=== PATIENT | female | born 1985 | race American Indian/Alaskan Native ===

== ENCOUNTER 2017-04-01 21:07 | Emergency (ER) | payer SELFPAY ==
[2017-04-01] MEDS ORDERED: ZOFRAN IV ONE (21:30)
[2017-04-01] MEDS ORDERED: TYLENOL PO ONE (21:32)
[2017-04-01 21:56] LABS: Basophils % (Auto) 0.2 % (0.0-1.8); Eosinophils % (Auto) 1.2 % (0.0-4.3); Hematocrit 37.4 % (30.3-42.9); Hemoglobin 12.6 gm/dl (10.1-14.3); Mean Corpuscular HGB Conc 34 % (30-34); Mean Corpuscular Hemoglobin 30 pg (28-32); Mean Corpuscular Volume 89 fl (79-97); Platelet Count 173 K/mm3 (140-440); Red Blood Count 4.21 M/mm3 (3.65-5.03); White Blood Count 8.8 K/mm3 (4.5-11.0)
[2017-04-01 22:08] LABS: Anion Gap 19 mmol/L; BUN/Creatinine Ratio 11.11; Blood Urea Nitrogen 10 mg/dL (7-17); Calcium 9.2 mg/dL (8.4-10.2); Carbon Dioxide 21 mmol/L (22-30); Chloride 98.5 mmol/L (98-107); Glucose 96 mg/dL (65-100); Sodium 134 mmol/L (137-145)
[2017-04-01 22:09] LABS: Bacteria,Urine 1+ /HPF (Negative); Bilirubin,Urine NEG (Negative); Blood,Urine SM (Negative); Ketones,Urine NEG (Negative); Leukocyte Esterase,Urine SM (Negative); Mucus,Urine FEW /HPF; Nitrite,Urine NEG (Negative); Protein,Urine <15 mg/dL mg/dL (Negative); Urobilinogen,Urine < 2.0 mg/dL (<2.0)
[2017-04-02] MEDS ORDERED: NACL 0.9% 1000 ML 1,000 ML ONE (02:22)
[2017-04-02] MEDS ORDERED: MORPHINE IV ONE (03:25)
[2017-04-02] MEDS ORDERED: NACL 0.9% 1000 ML 1,000 ML IV ONE (03:25)
[2017-04-02] MEDS ORDERED: ROCEPHIN/NS 1 GM/50 ML 1 GM/50 ML BAG IV ONE (03:25)
[2017-04-02] MEDS ORDERED: TORADOL IV ONE (03:25)
[2017-04-02] MEDS ORDERED: ZOFRAN IV ONE (03:25)
[2017-04-02] MEDS ORDERED: DILAUDID IV ONE (05:26)
--- NOTE | 2017-04-02 05:27 | Emergency Department Report ---
ED Abdominal Pain HPI - General Chief Complaint: Back Pain/Injury Stated Complaint: BACK PAIN, DIZZY, AND FATIGUE Time Seen by Provider: 04/02/17 02:54 Source: patient Mode of arrival: Ambulatory Limitations: No Limitations - History of Present Illness Initial Comments: 31-year-old female with no significant past medical history presents to the hospital complaining of right flank pain and fever that started last night. Pain is sharp in the lower back, intermittently, worse with movement. Patient complaining of nausea and vomiting, fever and chills. Patient denies dysuria but states she has suprapubic pressure with urination. Positive dizziness with standing today and generalized malaise and fatigue. No previous abdominal surgeries reported. Severity scale (0 -10): 8 - Related Data Previous Rx's Medication Instructions Recorded Last Taken Type Ibuprofen [Motrin] 800 mg PO Q8HR PRN #30 tablet 04/02/17 Unknown Rx Nitrofurantoin [place]/M-Cryst 100 mg PO Q12HR #14 capsule 04/02/17 Unknown Rx [Macrobid CAP] Ondansetron [Zofran Odt] 4 mg PO Q8HR #20 tab.rapdis 04/02/17 Unknown Rx oxyCODONE /ACETAMINOPHEN [Percocet 1 tab PO Q6HR PRN #20 tablet 04/02/17 Unknown Rx 5/325] Allergies Allergy/AdvReac Type Severity Reaction Status Date / Time No Known Allergies Allergy Unverified 04/01/17 21:29 ED Review of Systems ROS: Stated complaint: BACK PAIN, DIZZY, AND FATIGUE Other details as noted in HPI Comment: All other systems reviewed and negative Other: Constitutional: Positive fever Eyes: No eye pain visual changes ENT: No ear pain or throat pain Neck: Denies pain Respiratory: Denies cough wheezing shortness of breath Cardiovascular: Denies chest pain, palpitations, syncope GI: As per HPI : Denies dysuria Musculoskeletal: Lower back pain right side Skin: Denies rash, lesions, erythema Neurologic: Denies headache, numbness, weakness Psychiatric: Denies suicidal ideation, hallucinations ED Past Medical Hx - Past Medical History Previous Medical History?: No - Surgical History Past Surgical History?: No - Social History Smoking Status: Current Every Day Smoker Substance Use Type: None - Medications Home Medications: Home Medications Medication Instructions Recorded Confirmed Last Taken Type Ibuprofen [Motrin] 800 mg PO Q8HR PRN #30 tablet 04/02/17 Unknown Rx Nitrofurantoin [place]/M-Cryst 100 mg PO Q12HR #14 capsule 04/02/17 Unknown Rx [Macrobid CAP] Ondansetron [Zofran Odt] 4 mg PO Q8HR #20 tab.rapdis 04/02/17 Unknown Rx oxyCODONE /ACETAMINOPHEN [Percocet 1 tab PO Q6HR PRN #20 tablet 04/02/17 Unknown Rx 5/325] ED Physical Exam - General Limitations: No Limitations - Other Other exam information: General: No limitations, patient is alert in no acute distress Head exam: Atraumatic, normocephalic Eyes exam: Normal appearance, pupils equal reactive to light, extraocular movements intact ENT: Moist mucous membrane, normal oropharynx Neck exam: Normal inspection, full range of motion, no meningismus nontender Respiratory exam: Clear to auscultation bilateral, no wheezes, rales, crackles Cardiovascular: Normal rate and rhythm, normal heart sounds Abdomen: Soft, nondistended, suprapubic tenderness, with normal bowel sounds, no rebound, or guarding Extremity: Full range of motion normal inspection no deformity Back: Normal Inspection, full range of motion, no tenderness. No CVA tenderness Neurologic: Alert, oriented x3, cranial nerves intact, no motor or sensory deficit Psychiatric: normal affect, normal mood Skin: Warm, dry, intact ED Course Vital Signs 04/01/17 04/02/17 04/02/17 21:19 02:12 02:20 Temperature 101.7 F H 98.1 F Pulse Rate 110 H 80 Respiratory 16 18 Rate Blood Pressure 131/89 91/50 Blood Pressure 131/89 91/50 [Left] O2 Sat by Pulse 99 100 Oximetry 04/02/17 04/02/17 04/02/17 02:22 02:31 02:45 Temperature Pulse Rate Respiratory Rate Blood Pressure 122/72 111/74 114/66 Blood Pressure [Left] O2 Sat by Pulse Oximetry 04/02/17 04/02/17 04/02/17 02:56 03:00 03:10 Temperature Pulse Rate Respiratory Rate Blood Pressure 126/73 123/69 123/69 Blood Pressure [Left] O2 Sat by Pulse 100 98 99 Oximetry 04/02/17 04/02/17 03:20 03:57 Temperature Pulse Rate Respiratory Rate Blood Pressure 114/66 114/66 Blood Pressure [Left] O2 Sat by Pulse 99 Oximetry - Reevaluation(s) Reevaluation #1: 04/02/17 05:24 Tachycardia improved with IV fluids and fever reduction. Patient treated Rocephin for UTI. 04/02/17 05:26 Pain improved after morphine, Zofran, Toradol however, patient has persistent back pain there for additional medicine ordered. Dilaudid 0.5 mg ordered. ED Medical Decision Making - Lab Data Result diagrams: 04/01/17 21:42 04/01/17 21:42 Lab Results 04/01/17 04/01/17 04/01/17 Range/Units 21:42 21:42 21:45 WBC 8.8 (4.5-11.0) K/mm3 RBC 4.21 (3.65-5.03) M/mm3 Hgb 12.6 (10.1-14.3) gm/dl Hct 37.4 (30.3-42.9) % MCV 89 (79-97) fl MCH 30 (28-32) pg MCHC 34 (30-34) % RDW 15.0 (13.2-15.2) % Plt Count 173 (140-440) K/mm3 Lymph % (Auto) 18.1 (13.4-35.0) % [place] % (Auto) 10.0 H (0.0-7.3) % Eos % (Auto) 1.2 (0.0-4.3) % Baso % (Auto) 0.2 (0.0-1.8) % Lymph # 1.6 (1.2-5.4) K/mm3 M[place]ough # 0.9 H (0.0-0.8) K/mm3 Eos # 0.1 (0.0-0.4) K/mm3 Baso # 0.0 (0.0-0.1) K/mm3 Seg Neutrophils % 70.5 H (40.0-70.0) % Seg Neutrophils # 6.2 (1.8-7.7) K/mm3 Sodium 134 L (137-145) mmol/L Potassium 4.0 (3.6-5.0) mmol/L Chloride 98.5 (98-107) mmol/L Carbon Dioxide 21 L (22-30) mmol/L Anion Gap 19 mmol/L BUN 10 (7-17) mg/dL Creatinine 0.9 (0.7-1.2) mg/dL Estimated GFR > 60 ml/min BUN/Creatinine Ratio 11.11 % Glucose 96 (65-100) mg/dL Calcium 9.2 (8.4-10.2) mg/dL Urine Color Yellow (Yellow) Urine Turbidity Clear (Clear) Urine pH 6.0 (5.0-7.0) Ur Specific [place] 1.015 (1.003-1.030) Urine Protein <15 mg/dl (Negative) mg/dL Urine Glucose (UA) Neg (Negative) mg/dL Urine Ketones Neg (Negative) mg/dL Urine Blood Sm (Negative) Urine Nitrite Neg (Negative) Ur Reducing Substances Not Reportable Urine Bilirubin Neg (Negative) Urine Ictotest Not Reportable Urine Urobilinogen < 2.0 (<2.0) mg/dL Ur Leukocyte Esterase Sm (Negative) Urine WBC (Auto) 29.0 H (0.0-6.0) /HPF Urine RBC (Auto) 3.0 (0.0-6.0) /HPF U Epithel Cells (Auto) 1.0 (0-13.0) /HPF Urine Bacteria (Auto) 1+ (Negative) /HPF Urine Mucus Few /HPF Urine HCG, Qual Negative (Negative) blood culture urine culture pending - Medical Decision Making Patient suprapubic abdominal pain and pressure with urination and positive increased urine WBC count. She will be treated for UTI. Vital signs improved and symptoms improved prior to discharge - Differential Diagnosis UTI, pyelonephritis, renal colic, appendicitis Critical Care Time: No Critical care attestation.: If time is entered above; I have spent that time in minutes in the direct care of this critically ill patient, excluding procedure time. ED Disposition Clinical Impression: UTI (urinary tract infection) Disposition: DISCHARGED TO HOME OR SELFCARE Is pt being admited?: No Does the pt Need Aspirin: No Condition: Stable Instructions: Urinary Tract Infection in Women (ED) Additional Instructions: Take the medication as prescribed. Return if symptoms worsen. Follow-up with the doctor or clinic Prescriptions: Ibuprofen [Motrin] 800 mg PO Q8HR PRN #30 tablet PRN Reason: Pain Nitrofurantoin [place]/M-Cryst [Macrobid CAP] 100 mg PO Q12HR #14 capsule Ondansetron [Zofran Odt] 4 mg PO Q8HR #20 tab.rapdis oxyCODONE /ACETAMINOPHEN [Percocet 5/325] 1 tab PO Q6HR PRN #20 tablet PRN Reason: Pain Referrals: PRIMARY CARE, [Primary Care Provider] - 3-5 Days [facility] [Provider Group] - 3-5 Days AMELIA MCKEON MD [Staff Physician] - 3-5 Days Forms: Work/School Release Form(ED) Time of Disposition: 05:50
[2017-04-02 05:43] VITALS: BP 118/62
== END 2017-04-02 06:01 | disposition home or self-care (01) ==
LOC: ED 21:07
DX: N39.0 Urinary tract infection, site not specified (principal); F17.200 Nicotine dependence, unspecified, uncomplicated
CPT/HCPCS: 36415; 80048; 81001; 81025; 85025; 87040; 87076; 87086; 87186; 96365; 96375; 96376; 99284; J0696; J1170; J1885; J2270; J2405; J7030

== ENCOUNTER 2019-12-23 08:57 | Emergency (ER) | payer MEDICAID ==
[2019-12-23 11:07] LABS: Bilirubin,Urine NEG (Negative); Blood,Urine SM (Negative); Color,Urine Yellow (Yellow); Mucus,Urine FEW /HPF; Protein,Urine <15 mg/dL mg/dL (Negative); Urobilinogen,Urine < 2.0 mg/dL (<2.0)
[2019-12-23 11:09] LABS: HCG Qualitative,Urine Negative (Negative)
--- NOTE | 2019-12-23 11:11 | Emergency Department Report ---
ED Abdominal Pain HPI - General Chief Complaint: Abdominal Pain Stated Complaint: STOMACH SHARP PAIN Time Seen by Provider: 12/23/19 10:25 Source: patient Mode of arrival: Ambulatory Limitations: No Limitations - History of Present Illness Initial Comments: This is a 34-year-old female states she developed abdominal pain around 5 AM Wednesday morning. The pain is around her umbilicus. The pain is associated with nausea no vomiting and she's had 2 episodes of bowel movements since the pain started. . She denies fever and chills and the last day of her menstrual period was yesterday. Also denies any urinary symptoms. -: days(s) (1) Location: periumbilical Radiation: none Severity: severe Quality: sharp Consistency: constant Improves With: nothing Worsens With: movement Associated Symptoms: nausea Treatments Prior to Arrival: other (tylenol) - Related Data LMP (females 10-50): this week (LMP ended on 12/22/2019) Previous Rx's Medication Instructions Recorded Last Taken Type Ibuprofen [Motrin] 800 mg PO Q8HR PRN #30 tablet 04/02/17 Unknown Rx Nitrofurantoin [place]/M-Cryst 100 mg PO Q12HR #14 capsule 04/02/17 Unknown Rx [Macrobid CAP] Ondansetron [Zofran Odt] 4 mg PO Q8HR #20 tab.rapdis 04/02/17 Unknown Rx oxyCODONE /ACETAMINOPHEN [Percocet 1 tab PO Q6HR PRN #20 tablet 04/02/17 Unknown Rx 5/325] Ibuprofen [Motrin] 800 mg PO Q8HR PRN 7 Days #21 12/23/19 Unknown Rx tablet Allergies Allergy/AdvReac Type Severity Reaction Status Date / Time No Known Allergies Allergy Unverified 04/01/17 21:29 ED Review of Systems ROS: Stated complaint: STOMACH SHARP PAIN Other details as noted in HPI Comment: All other systems reviewed and negative Constitutional: denies: chills, fever ENT: denies: ear pain, dental pain Respiratory: denies: cough, shortness of breath, SOB with exertion Cardiovascular: denies: chest pain, palpitations, dyspnea on exertion Gastrointestinal: abdominal pain, nausea. denies: diarrhea, constipation Genitourinary: denies: urgency, dysuria, frequency, hematuria Musculoskeletal: denies: back pain Skin: denies: rash ED Past Medical Hx - Past Medical History Previous Medical History?: No Hx Hypertension: No Hx GERD: No Hx Seizures: No - Surgical History Past Surgical History?: No - Social History Smoking Status: Current Every Day Smoker Substance Use Type: Alcohol - Medications Home Medications: Home Medications Medication Instructions Recorded Confirmed Last Taken Type Ibuprofen [Motrin] 800 mg PO Q8HR PRN #30 tablet 04/02/17 Unknown Rx Nitrofurantoin [place]/M-Cryst 100 mg PO Q12HR #14 capsule 04/02/17 Unknown Rx [Macrobid CAP] Ondansetron [Zofran Odt] 4 mg PO Q8HR #20 tab.rapdis 04/02/17 Unknown Rx oxyCODONE /ACETAMINOPHEN [Percocet 1 tab PO Q6HR PRN #20 tablet 04/02/17 Unknown Rx 5/325] Ibuprofen [Motrin] 800 mg PO Q8HR PRN 7 Days #21 12/23/19 Unknown Rx tablet ED Physical Exam - General Limitations: No Limitations General appearance: alert, other (appears uncomfortable) - Head Head exam: Present: atraumatic - Eye Eye exam: Present: normal appearance. Absent: conjunctival injection - ENT ENT exam: Present: normal exam - Neck Neck exam: Present: normal inspection - Respiratory Respiratory exam: Present: normal lung sounds bilaterally. Absent: respiratory distress, wheezes, rales, rhonchi, stridor - Cardiovascular Cardiovascular Exam: Present: regular rate, normal heart sounds - GI/Abdominal GI/Abdominal exam: Present: soft, tenderness (around the umbilicus and epigastric region ), normal bowel sounds. Absent: distended, guarding, organomegaly, mass - Extremities Exam Extremities exam: Present: normal inspection, normal capillary refill - Back Exam Back exam: Present: normal inspection, full ROM. Absent: CVA tenderness (R), CVA tenderness (L) - Neurological Exam Neurological exam: Present: alert, oriented X3 - Psychiatric Psychiatric exam: Present: normal affect - Skin Skin exam: Present: warm, dry, intact, normal color ED Course Vital Signs 12/23/19 12/23/19 09:00 09:14 Temperature 97.5 F L 98.3 F Pulse Rate 97 H Respiratory 18 Rate Blood Pressure 137/82 O2 Sat by Pulse 100 Oximetry - Reevaluation(s) Reevaluation #1: 12/23/19 14:01 In no distress still having pain . Toradol 30 mg iv given. All findings discussed with mala. ED Medical Decision Making - Lab Data Result diagrams: 12/23/19 11:06 12/23/19 11:06 - Radiology Data Radiology results: report reviewed CT of abdomen Pelvis: The appendix is normal. Bilateral ovarian cysts are identified. A 3 cm right ovarian cyst and a 4.5 cm left ovarian cyst are demonstrated There are no acute inflammatory changes seen in the pelvis. Minimal fluid is seen in the cul-de-sac. Osseous structures are normal. IMPRESSION: 1. Bilateral ovarian cysts, larger on the left. - Medical Decision Making 34-year-old female with abdominal pain her labs and urinalysis were unremarkable.CT of her abdomen and pelvis revealed bilateral ovarian cyst the one on the left ovary is larger. All findings and results discussed with the patient and she is instructed to follow-up with her primary care doctor and or [facility] and referrals given.. Patient given RX for ibuprofen 800 for pain. Critical Care Time: No Critical care attestation.: If time is entered above; I have spent that time in minutes in the direct care of this critically ill patient, excluding procedure time. ED Disposition Clinical Impression: Abdominal pain Qualifiers: Abdominal location: periumbilical Qualified Code(s): R10.33 - Periumbilical pain Ovarian cyst Qualifiers: Laterality: bilateral Qualified Code(s): N83.201 - Unspecified ovarian cyst, right side; N83.202 - Unspecified ovarian cyst, left side Disposition: TO HOME OR SELFCARE Is pt being admited?: No Does the pt Need Aspirin: No Condition: Stable Instructions: Abdominal Pain (ED), Ovarian Cyst (ED) Additional Instructions: Follow up with your PCP or OBGYN, OR [facility] [phone] Call to make a appointment. The cat scan shows that you have bilateral ovarian cyst the one on the left is larger. There are no acute inflammatory changes your appendix appears to be normal. Take Motrin as prescribed for pain Prescriptions: Ibuprofen [Motrin] 800 mg PO Q8HR PRN 7 Days #21 tablet PRN Reason: Pain , Severe (7-10) Referrals: ROSALIE LUX MD [Primary Care Provider] - 3-5 Days LOUANN MIRZA MD [Staff Physician] - 3-5 Days Time of Disposition: 14:02
[2019-12-23] MEDS ORDERED: MORPHINE 2 MG/1 ML INJ IV ONE (11:26)
[2019-12-23] MEDS ORDERED: ONDANSETRON 4 MG/2 ML INJ IV ONE (11:26)
[2019-12-23] MEDS ORDERED: SODIUM CHLORIDE 0.9% 1000 ML 1,000 ML IV ONE (11:36)
[2019-12-23] MEDS ORDERED: SODIUM CHLORIDE 0.9% 1000 ML 1,000 ML ONE (11:38)
[2019-12-23 11:55] LABS: Hematocrit 39.4 % (30.3-42.9); Hemoglobin 13.5 gm/dl (10.1-14.3); Mean Corpuscular HGB Conc 34 % (30-34); Mean Corpuscular Volume 92 fl (79-97); Platelet Count 215 K/mm3 (140-440); Red Blood Count 4.28 M/mm3 (3.65-5.03); Red Cell Distribution Width 13.6 % (13.2-15.2)
[2019-12-23 12:17] LABS: Alanine Aminotransferase 17 units/L (7-56); Albumin 4.2 g/dL (3.9-5); BUN/Creatinine Ratio 15; Blood Urea Nitrogen 9 mg/dL (7-17); Calcium 9.5 mg/dL (8.4-10.2); Hemolysis Index 11
--- NOTE | 2019-12-23 13:36 | Cat Scan Report ---
CT abdomen pelvis w con INDICATION / CLINICAL INFORMATION: abdominal pain. TECHNIQUE: All CT scans at this location are performed using CT dose reduction for ALARA by means of automated e xposure control. COMPARISON: None available. FINDINGS: Limited lower thoracic images are negative. ABDOMEN: The gallbladder, liver, spleen, pancreas and kidneys are normal. No adrenal masses or retroperitoneal adenopathy. No small bowel dilatation. Pelvis: The appendix is normal. Bilateral ovarian cysts are identified. A 3 cm right ovarian cyst and a 4.5 cm left ovarian cyst are demonstrated There are no acute inflammatory changes seen in the pelvis. Minimal fluid is seen in the cul-de-sac. Osseous structures are normal. IMPRESSION: 1. Bilateral ovarian cysts, larger on the left. Signer Name: Joey Main MD Signed: 12/23/2019 1:32 PM Workstation Name: [id number]
[2019-12-23] MEDS ORDERED: KETOROLAC 30 MG/1 ML INJ IV ONE (13:58)
[2019-12-23 15:05] VITALS: BP 128/80
== END 2019-12-23 15:04 | disposition home or self-care (01) ==
LOC: ED 08:57
DX: R10.9 Unspecified abdominal pain (principal); N83.201 Unspecified ovarian cyst, right side; F17.200 Nicotine dependence, unspecified, uncomplicated; Z79.1 Long term (current) use of non-steroidal anti-inflammatories (NSAID); Z79.899 Other long term (current) drug therapy
CPT/HCPCS: 36415; 74177; 80053; 81001; 81025; 83690; 85027; 96374; 96375; 99284; J1885; J2270; J2405; J7030; Q9967